=== PATIENT | female | born 1990 | race Caucasian/White ===

== ENCOUNTER 2017-03-25 22:29 | Emergency (ER) | payer SELFPAY ==
[~2017-03-25] VITALS: Ht 170.2 cm; Wt 113.0 kg
[2017-03-25 22:31] VITALS: BP 155/85; PULSE 110; RESP 16; TEMP 99; O2SAT 99
--- NOTE | 2017-03-25 22:54 | PD ---
Physical Exam Date Seen by Provider: Mar 25, 2017 Time Seen by Provider: 22:52 Narrative 26 yo female here for evaluation of abscess in [place]. Has pilonidal cyst. History of this. Started on thursday. Painful. Not draining. No injury. Not seen anybody for this. Vitals are stable. Awaiting bed placement. Data Data Last Documented VS Vital Signs Date Time Temp Pulse Resp B/P Pulse Ox O2 Delivery O2 Flow Rate FiO2 03/25/17 22:31 99.0 110 16 155/85 99 Room Air [facility] Medical Record Reviewed: Yes Supervised Visit with DIANA: No Augusto Godfrey Mar 25, 2017 22:54
[2017-03-25] MEDS ORDERED: CIPR-9 PO (23:57)
[2017-03-25] MEDS ORDERED: METR-1 PO (23:57)
[2017-03-25] MEDS ORDERED: PERC5TAB12 PO (23:57)
[2017-03-26] MEDS ORDERED: oxyCODONE/ACETAMINOPHEN 5 MG/325 MG TAB PO ONE
[2017-03-26] MEDS ORDERED: metroNIDAZOLE 500 MG TAB PO ONE
[2017-03-26] MEDS ORDERED: CIPROFLOXACIN 500 MG TAB PO ONE
--- NOTE | 2017-03-26 00:04 | PD ---
HPI Chief Complaint: Lump, Cyst, Hernia Time Seen by Provider: 23:58 Travel History International Travel<30 days: No Contact w/Intl Traveler<30days: No Traveled to known affect area: No History of Present Illness HPI 26-year-old white female presents to emergency department with complaints of a recurrent pilonidal cyst. She states that she has had this incised and drained on 3 prior occasions. She states that it became painful again this past week. She denies any drainage. No fever chills. No nausea vomiting. Pain is moderate to severe. She is unable to sit down and pain. She has not sought attention by a colorectal surgeon. PFS Past Medical History ADD: Yes ADHD: Yes Depression: Yes Tetanus Vaccination: Unknown Influenza Vaccination: No ?: Not LMP: CURRENT Past Surgical History Other Surgery: Yes (RECONSTRUCTIVE ANAL Sx AFTER with colostomy and reversal) Social History Alcohol Use: Yes (OCC) Tobacco Use: Yes Substance Use: No Allergies-Medications (Allergen,Severity, Reaction): Coded Allergies: Penicillin (Verified Allergy, Severe, Hives, 03/25/17) Reported Meds & Prescriptions Reported Meds & Active Scripts Active Percocet (Oxycodone-Acetaminophen) 5-325 mg Tab 1-2 Tab PO Q6H PRN Cipro (Ciprofloxacin HCl) 500 Mg Tab 500 Mg PO BID Flagyl (Metronidazole) 500 Mg Tab 500 Mg PO QID Review of Systems Except as stated in HPI: all other systems reviewed are Neg Physical Exam Narrative GENERAL: This is a well-nourished, well-developed patient, in no apparent distress. The patient's seen, examined and treated in the presence of the nurse. SKIN: Patient has a large area of erythema, warmth and tenderness with fluctuance to the gluteal crease consistent with a pilonidal cyst. Warm and dry. HEAD: Atraumatic. Normocephalic. EYES: PERRL, EOMI, no discharge or injection. No scleral icterus. EARS: Clear NOSE: Nasal turbinates appear normal. THROAT: Mucosa pink and moist. Airway patent. NECK: Trachea midline. supple, moves head freely. LUNGS: Clear to auscultation. CV: Regular in rhythm. ABDOMEN: Soft nontender. EXT: No clubbing cyanosis or edema. Data Data Last Documented VS Vital Signs Date Time Temp Pulse Resp B/P Pulse Ox O2 Delivery O2 Flow Rate FiO2 03/25/17 22:31 99.0 110 16 155/85 99 Room Air Orders Ciprofloxacin (Cipro) (03/26/17 00:00) Metronidazole (Flagyl) (03/26/17 00:00) Oxycodone-Acetamin 5-325 Mg (Percocet (03/26/17 00:00) MDM Medical Decision Making Medical Screen Exam Complete: Yes Emergency Medical Condition: Yes Medical Record Reviewed: Yes Differential Diagnosis MDM: High Differential diagnoses: Abscess, folliculitis, cellulitis, lymphangitis, abrasion, contact dermatitis, pilonidal cyst Narrative Course An incision and drainage has been performed. Patient's given Cipro 500, Flagyl 500, and 2 Percocet 5 mg by mouth I had a long discussion with patient regarding need for surgical revision of her pilonidal cyst to prevent recurrence. The patient verbally states understanding. Patient agrees with treatment plan of follow-up. Procedures Procedure Narrative I&D abscess: After the risks and benefits were discussed the following procedure was performed. The skin is prepped and draped in the usual sterile fashion using Betadine. The abscess is anesthetized with 1% lidocaine with epinephrine. After adequate anesthesia, an 11 blade scalpel is used to make a 2.5 centimeter central incision. Perulant material is expressed. Suction tip care catheter is used to decompress the cavity.. The wound is packed open using iodoform gauze. A clean dressing is applied. The patient tolerated the procedure well. There was no complications. Follow-up instructions were given to the patient. Diagnosis Primary Impression: Infected pilonidal cyst Patient Instructions: Narcotic given in the ED, General Instructions Additional Instructions: Rest. Elevation. keep clean and dry. Sits baths 3-4 times daily. Remove the packing in 3 days. Three Advil every 6 hours. Cipro, Flagyl and Percocet. Follow-up with a primary care doctor in 3-5 days. Follow-up with a colorectal surgeon within 1 week. Return to the ER for any problems. Med/Other Pt SpecificInfo: Prescription(s) given, Wound Care Scripts Oxycodone-Acetaminophen (Percocet)5-325 mg Tab1-2 Tab PO Q6H PRN (PAIN) #20 TAB Prov:Ayush Khanna MD 03/25/17 Ciprofloxacin (Cipro)500 Mg [id number] Mg PO BID #14 TAB Ref 0 Prov:Ayush Khanna MD 03/25/17 Metronidazole (Flagyl)500 Mg [id number] Mg PO QID #28 TAB Ref 0 Prov:Ayush Khanna MD 03/25/17 Disposition: 01 DISCHARGE HOME Condition: Stable Casimiro Langston Mar 26, 2017 00:03
== END 2017-03-26 00:17 | disposition home or self-care (01) ==
LOC: NEPD 22:29
DX: L05.91 Pilonidal cyst without abscess (principal); F90.9 Attention-deficit hyperactivity disorder, unspecified type; F32.9 Major depressive disorder, single episode, unspecified; Z79.899 Other long term (current) drug therapy; Z88.0 Allergy status to penicillin; Z72.0 Tobacco use
CPT/HCPCS: 10081

== ENCOUNTER 2017-03-28 15:22 | Emergency (ER) | payer SELFPAY ==
[~2017-03-28] VITALS: Ht 170.2 cm; Wt 115.0 kg
[~2017-03-28 15:22] MED LIST: CIPR-9 PO; METR-1 PO; PERC5TAB12 PO
[2017-03-28 15:24] VITALS: BP 142/93; PULSE 64; RESP 14; TEMP 98.6; O2SAT 100
--- NOTE | 2017-03-28 18:08 | PD ---
HPI . infected pilonidal cyst Chief Complaint: Laceration/Skin Injury Time Seen by Provider: 18:08 Travel History International Travel<30 days: No Contact w/Intl Traveler<30days: No Traveled to known affect area: No History of Present Illness HPI 26 yr old female here for removal of packing placed on 03/25/17 for a pilonidal cyst. She is taking meds as prescribed. She denies any fever or chills. Still has pain near the cyst. PFSH Past Medical History ADD: Yes ADHD: Yes Depression: Yes Diminished Hearing: No Tetanus Vaccination: Unknown ?: Not LMP: 03/25/17 Past Surgical History Abdominal Surgery: Yes Other Surgery: Yes (RECONSTRUCTIVE ANAL Sx AFTER with colostomy and reversal) Social History Alcohol Use: Yes Tobacco Use: Yes Substance Use: No Allergies-Medications (Allergen,Severity, Reaction): Coded Allergies: Penicillin (Verified Allergy, Severe, Hives, 03/28/17) Reported Meds & Prescriptions Reported Meds & Active Scripts Active Percocet (Oxycodone-Acetaminophen) 5-325 mg Tab 1-2 Tab PO Q6H PRN Cipro (Ciprofloxacin HCl) 500 Mg Tab 500 Mg PO BID Flagyl (Metronidazole) 500 Mg Tab 500 Mg PO QID Review of Systems General / Constitutional: No: Fever Eyes: No: Visual changes HENT: No: Headaches Cardiovascular: No: Chest Pain or Discomfort Respiratory: No: Shortness of Breath Gastrointestinal: No: Abdominal Pain Genitourinary: No: Dysuria Musculoskeletal: No: Pain Skin: Positive Other (pilnoidal cyst), No Rash Neurologic: No: Weakness Psychiatric: No: Depression Endocrine: No: Polydipsia Hematologic/Lymphatic: No: Easy Bruising Physical Exam Narrative GENERAL: AAO x 3, no acute distress, Well-nourished, well-developed patient. SKIN: Warm and dry. No visible rashes or bruising. left buttock pilonidal cyst, packing removed, clean without purulence, no purulent matter in the wound, HEAD: Normocephalic and atraumatic. EYES: No scleral icterus. No injection or drainage. ENT: No nasal drainage noted. Mucous membranes pink. Airway patent. NECK: Supple, trachea midline. No JVD. CARDIOVASCULAR: Regular rate and rhythm without murmurs, gallops, or rubs. RESPIRATORY: Breath sounds equal bilaterally. No accessory muscle use. No rhonchi or rales. GASTROINTESTINAL: Abdomen soft, non-tender, nondistended. EXTREMITIES: No cyanosis or edema. BACK: No obvious deformity. NEURO: CN II-12 intact, ground instructor advanced strength normal b/l, UE and LE 5/5, no focal deficits PSYCH: AAO x 3, normal affect. Data Data Last Documented VS Vital Signs Date Time Temp Pulse Resp B/P Pulse Ox O2 Delivery O2 Flow Rate FiO2 03/28/17 15:24 98.6 64 14 142/93 100 MDM Medical Decision Making Medical Screen Exam Complete: Yes Emergency Medical Condition: Yes Medical Record Reviewed: Yes Differential Diagnosis infected pilonidal cyst, cellulitis, less likely sepsis Narrative Course 26 yr old female here for removal of packing to infected pilonidal cyst. Packing was removed. Patient tolerated without incident. I do not recommend additional packing as there is no more purulent drainage. Area cleaned and light gauze was placed. I recommend follow-up with her primary care provider recommended follow-up with the surgeon. Continue abx until complete. Discussed signs of worsening infection. Discussed proper cleaning. Patient verbalized understanding of instructions, questions were answered, and thanked me for their care. I advised them if their condition worsens, please return to the nearest emergency room for further care. Diagnosis Primary Impression: Infected pilonidal cyst Referrals: [facility] Patient Instructions: General Instructions Additional Instructions: Continue taking her antibiotics as prescribed. Keep area clean with soap and water daily. Please establish with a surgeon to have this removed. Return to the emergency department for any worsening infection. [place] for worsening signs of infection which include fever, increased redness , increased warmth, purulent drainage, increased swelling or streaking. If any of these develop, please go to the nearest emergency room. Med/Other Pt SpecificInfo: Prescription(s) given Disposition: 01 DISCHARGE HOME Condition: Stable Ines Akins Mar 28, 2017 18:08
== END 2017-03-28 18:51 | disposition home or self-care (01) ==
LOC: NEPK 15:22
DX: L05.91 Pilonidal cyst without abscess (principal)
CPT/HCPCS: 99281